=== PATIENT | female | born 1975 | race Asian ===

== ENCOUNTER → 2018-03-15 | Outpatient (CLI) | payer OTHER ==
[~2018-03-15] MED LIST: GASTROGRAFIN SOLUTION 30ML (Q9963) As Ordered; ISOVUE-370 76% 100ML VIAL (Q9967) As Ordered
== END ==
LOC: M RAD 16:17
DX: R10.13 Epigastric pain (principal); M54.6 Pain in thoracic spine; Z85.07 Personal history of malignant neoplasm of pancreas
CPT/HCPCS: Q9963